=== PATIENT | female | born 1980 | race Caucasian/White ===

== ENCOUNTER → 2022-08-17 | Outpatient (CLI) | payer OTHER, SELFPAY ==
[2022-08-17 10:18] LABS: Mucous, Urine 0 SEEN /hpf (<or=2+)
[2022-08-17 10:25] LABS: Color, Urine Yellow (Yellow); Glucose, Dipstick Normal (Normal); Ketone-Dipstick Negative (Negative); Leukocyte Esterase-Dipstick 500 /ul (Negative); Nitrite-Dipstick Negative (Negative); Occult Blood-Urine 150 /ul (Negative); Protein-Dipstick Negative (Negative); Urine Bilirubin Dipstick Negative (Negative); Urine Clarity Sl. Cloudy (Clear); Urine Urobilinogen Normal (Normal); Urine pH 6.5 (5.0 - 8.0)
[2022-08-17 10:41] LABS: Bacteria 1+ /hpf (None Seen); Red Blood Cells-Urine 0-5 SEEN /hpf (0-5); Squamous Epithelial Cells - UA 0-5 SEEN /hpf (5-10); White Blood Cells 25-50 SEEN /hpf (0-5)
== END | disposition home or self-care (01) ==
LOC: LABSPEC 10:06
PROVIDERS: Referring Provider Physician Assistant; Visit Provider Physician Assistant
DX: R30.0 Dysuria (principal)
CPT/HCPCS: 81001; 87077; 87086; 87088; 87186

== ENCOUNTER → 2022-09-01 | Outpatient (CLI) | payer OTHER, SELFPAY | END | disposition home or self-care (01) | LOC: LABSPEC 16:49 | PROVIDERS: Referring Provider Urology; Visit Provider Urology | DX: N30.00 Acute cystitis without hematuria (principal) | CPT/HCPCS: 87086; 87088 ==

== ENCOUNTER → 2022-10-08 | Outpatient (CLI) | payer OTHER, SELFPAY | END | disposition home or self-care (01) | PROVIDERS: Referring Provider Urology; Visit Provider Urology | DX: R30.0 Dysuria (principal) | CPT/HCPCS: 87086 ==

== ENCOUNTER → 2022-10-29 | Outpatient (CLI) | payer OTHER, SELFPAY ==
--- NOTE | 2022-10-29 12:45 | US_ITS ---
PROCEDURE: RENAL ULTRASOUND - COMPLETE REASON FOR EXAM: Female, 41 years old. Acute cystitis TECHNIQUE: Ultrasound evaluation of the bilateral kidneys was performed with real-time ultrasonography and static grayscale imaging. COMPARISON: None. FINDINGS: RIGHT KIDNEY: Normal location of the right kidney which is normal in size. The right kidney measures 11.1 x 5.6 x 4 cm cm. There is a normal cortex of the right kidney. The renal cortex measures 1.4 cm. There is no right renal mass or cyst. There are no right renal calculi. There is no right hydronephrosis. DISTAL RIGHT URETER: There is non-visualization of the distal right ureter. There is no demonstrated right ureterovesical junction calculus. There is a visualized right ureteral jet. LEFT KIDNEY: Normal location of the left kidney which is normal in size. The left kidney measures 10 x 5.2 x 4.7 cm cm. There is a normal cortex of the left kidney. The renal cortex measures 1.6 cm. There is no left renal mass or cyst. There are no left renal calculi. There is no left hydronephrosis. DISTAL LEFT URETER: There is non-visualization of the distal left ureter. There is no demonstrated left ureterovesical junction calculus. There is a visualized left ureteral jet. BLADDER: The distended urinary bladder has a volume of 435 ml. There is a normal wall thickness of the distended urinary bladder. The empty urinary bladder has a volume of 25 ml. There is no demonstrated mass within the urinary bladder. There is no demonstrated bladder calculi. Incidentally noted is fluid within the endometrial cavity suboptimally evaluated on this exam. US/Kidney and Bladder IMPRESSION: 1. No evidence of hydronephrosis. 2. Fluid in the endometrial cavity. Correlation with pelvic ultrasound is recommended. Electronically Signed: David Rodriguez MD at 16:08 EDT ,
== END | disposition home or self-care (01) ==
LOC: US 12:43
PROVIDERS: PCP Nurse Practitioner Family; Referring Provider Urology; Visit Provider Urology
DX: N30.01 Acute cystitis with hematuria (principal); R30.0 Dysuria
CPT/HCPCS: 76770

== ENCOUNTER 2023-05-14 06:00 | Day surgery (SDC) | payer OTHER, SELFPAY ==
--- NOTE | 2023-04-28 10:07 | HP.PCM_ITS ---
History and Physical Date of Admission: 05/14/23 HPI: The patient is a 42 year old female presenting for pre-operative visit. She is scheduled for hysteroscopy with endometrial ablation, for menorrhage and fe def. anemia on 05/14/23. Procedure discussed along with risks, benefits and complications. Other alternatives discussed for management. Consent form signed? Yes. ? ? PAST MEDICAL HISTORY PAST MEDICAL HISTORY Diagnosis Date ? Anemia ? ? Anxiety ? ? Hypertension ? ? Irritable bowel syndrome 12/2003 ? ? PAST SURGICAL HISTORY PAST SURGICAL HISTORY Procedure Laterality Date ? COLONOSCOPY FLX DX W/COLLJ SPEC WHEN PFRMD ? ? ? Colonoscopy, removed 2 polyps ? ESSURE ? ? ? LAPS ABD PRTM&OMENTUM DX W/WO SPEC BR/WA SPX ? ? ? Laparoscopy ? PAST SURGICAL HISTORY OF ? 02/18/2006 ? [place] teeth extracted ? ? ? CURRENT MEDICATIONS Current Outpatient Medications Medication Sig Dispense Refill ? clobetasol (TEMOVATE) 0.05 % cream APPLY to flared areas OF the body in a thin layer TWICE DAILY for up to 2 weeks, then hold ? ? ? triamcinolone acetonide (KENALOG) 0.1 % cream APPLY in a thin layer to flared areas OF the face TWICE DAILY for up to 2 weeks, then hold ? ? ? ergocalciferol 50,000 unit capsule (VITAMIN D2, DRISDOL) Take 1 capsule by mouth one time a week. ? ? ? ferrous sulfate 325 mg (65 mg iron) tablet ? calcium-vitamin D3-vitamin K (VIACTIV) 650 mg-12.5 mcg-40 mcg chew ? L. acidophilus-L. salivarius-B. bifidum-S. thermophilus (ACIDOPHILUS) 175 mg capsule ? norgestrel-ethinyl estradiol (ELINEST) 0.3-30 mg-mcg per tablet Take 1 tablet by mouth once daily. 28 tablet 11 ? d-mannose 500 mg cap ? levothyroxine (SYNTHROID) 25 mcg tablet 50 mcg. ? ? ? Ascorbic Acid 1,000 mg tablet ? hydrOXYzine HCl (ATARAX) 25 mg tablet Take 25 mg by mouth three times daily as needed. ? ? ? No current facility-administered medications for this visit. ? ? ALLERGIES: Demerol [Meperidine (Pf)], Sulfamethoxazole-Trimethoprim, Tetanus Vaccines And Toxoid, Tetracycline, and Venofer [Iron Sucrose] ? PERSONAL HISTORY: SOCIAL HISTORY Social History ? Tobacco Use ? Smoking status: Former ? ? Packs/day: 1.00 ? ? Years: 7.00 ? ? Additional pack years: 0.00 ? ? Total pack years: 7.00 ? ? Types: Cigarettes ? ? Quit date: 08/22/2005 ? ? Years since quittin.6 ? Smokeless tobacco: Never Vaping Use ? Vaping Use: Never used Substance Use Topics ? Alcohol use: Yes ? ? Comment: Occasionally ? Drug use: No ? FAMILY HISTORY: FAMILY HISTORY FAMILY HISTORY Problem Relation Age of Onset ? Cancer Mother ? ? Uterine & ovarian ? Hypertension Father ? ? Heart Father ? ? [place], CHF ? Heart Sister ? ? 50's ? Parkinson?s Disease Brother ? ? Migraines Brother ? ? other (Mentally Retarded) Maternal Uncle ? ? ? REVIEW OF SYMPTOMS: GENERAL: denies fevers or chills ENDOCRINOLOGY: has not been on steroids Cardiology : denies palpitations or chest pain Respiratory: denies SOB or cough Hematology: denies history of prolonged bleeding or easy bruising or VTE Allergy: Denies history of personal or family history of allergy to anesthesia ? PHYSICAL EXAMINATION: ? VITALS: Blood pressure 118/74, pulse 92, height 5' 4.5 (1.638 m), weight 151 lb (68.5 kg), last menstrual period 04/07/2023, SpO2 100%. ? GENERAL: The patient is well nourished, well hydrated in no acute distress. , The patient is oriented to time, place, and person. NECK: Supple. No lynphadenopathy, normal thyroid, no thyromegaly. LUNGS: Clear to auscultation bilaterally. no wheezes, rhonchi or rales HEART: Regular rate and rhythm, Normal heart sounds, and No murmurs or gallops ? IMPRESSION: AUB, fe def. anemia ? PLAN: The risks/benefits/alternatives and personal involved for the planned hysteroscopy with endometrial ablation were reviewed with the patient. Her questions were answered to her satisfaction and she desires to proceed. Consent was signed. I reviewed with her postop instructions and expectations. ? ? I have reviewed and updated past medical and surgical history, medications and allergies Assessment & Plan Assessment/Plan (1) Fe deficiency anemia: (2) Abnormal uterine bleeding (AUB):
[2023-05-14 06:34] LABS: Internal QC Validated? YES +Cl - CLEAR BKGD; Pregnancy, Urine Negative Negative
[2023-05-14 06:37] VITALS: BP 127/87; PULSE 90; RESP 16; TEMP 37.3; O2SAT 100; BMI 24.9
[2023-05-14] MEDS: Lactated Ringers 1,000 ML 15 ML IV (06:45)
[2023-05-14] MEDS: Acetaminophen 500 MG Tablet 1000 MG PO (06:45)
[2023-05-14] MEDS: Ketorolac 30 MG/ML Syringe IV (06:46)
[2023-05-14 07:12] LABS: Hematocrit 38.9 % (37-47); Hemoglobin 12.9 g/dL (12.0-15.0); Mean Corp Hgb Conc 33.2 g/dL (32-36); Mean Corpuscular Hgb 30.1 pg (27.0-32.0); Mean Corpuscular Volume 90.9 fL (81-99); Mean Platelet Vol. 10.3 fl (6.2-12.0); Platelet Count 175 K/mm3 (150-450); RBC Distribution Width CV 12.9 % (11.6-14.6); RBC Distribution Width SD 42.5 fl (35.1-43.9); Red Blood Count 4.28 M/mm3 (4.2-5.4); White Blood Count 3.7 K/mm3 (4.4-11.0)
--- NOTE | 2023-05-14 07:45 | PCM.DC ---
Discharge Instructions Diet Discharge Diet: No restrictions Activity May resume sexual activity in: 2 weeks Lifting Restrictions: none Additional Activity Instructions:: Take tylenol or ibuprofen as needed for pain. You may use a heating pad on your abdomen as needed. Dressing / Incision Call your doctor if your incision/area has: Sudden Increased Bleeding and Foul Smelling Discharge Call your doctor if you observe: Fever of 101 or Higher and Using more than 1 pad per hour (for 2 hrs in a row) Follow Up Care Please Follow Up With: Kelsy Jeffrey MD When: YOu do not need a postop appointment. Call [phone] or send a Meeting To You message. to make an appointment or with any concerns. Test Results: Test results from this visit will be discussed in further detail at your follow-up appointment, if applicable. Discharge Plan Admission Primary Reason for Your Visit: Endometrial ablation Attending Provider: Kelsy Jeffrey Primary Care Provider: Karli Anne NP Discharge Orders/Prescriptions Prescriptions: No Action levothyroxine 50 mcg tablet 50 mcg PO DAILY d-mannose 500 mg capsule 1,300 mg PO DAILY Elinest 0.3-30 mg-mcg tablet 1 tab PO DAILY ergocalciferol (vitamin D2) 1,250 mcg (50,000 unit) capsule 1,250 mcg PO QWEEK hnogxakfmoys-ycm-ttahnnp-FA 200-0.4 mg tablet,chewable 1 tab PO BID ferrous gluconate 320 mg (36 mg iron) tablet 320 mg PO QHS C Complex 1,000 mg tablet extended release 1,000 mg PO DAILY Probacap 10 billion cell capsule 100 mmu cells PO DAILY Referrals / Follow Up: Karli Anne NP, [facility] [Primary Care Provider] - Disposition Disposition (needs filled in before D/C Order can be placed): Home, Self Care
--- NOTE | 2023-05-14 07:49 | OP.PCM_ITS ---
Problems Associated Problem List Diagnoses (1) Fe deficiency anemia: (2) Abnormal uterine bleeding (AUB): Report of Operation Date of Procedure: 05/14/23 Pre-Operative Diagnosis: AUB, fe def anemia from chronic blood loss Post-Operative Diagnosis: same Surgery/Procedure Performed:: Hysteroscopy with HTA endometrial ablation Surgeon: Kelsy Jeffrey arranging funeral director: Kerry< KAREN ms3 Type of Anesthesia: MAC/Supplemental/Local Anesthesiologist: Everett Love Special Medications: none Drains: none Description of Procedure: The patient was taken to the OR where she was prepped and draped in dorsal lithotomy position. The weighted speculum was placed in the vagina and the anterior lip of the cervix was grasped with a single-tooth tenaculum. A paracervical block was administered with [1% lidocaine with 1-100,000 epinephrine solution]. The cervix was dilated serially with Hegar dilators. The [5mm] hysteroscope was placed into the uterine cavity and the above findings were noted. Bilateral tubal ostia [were] identified. The hysteroscope was removed. A gentle sharp curettage was done of the uterine cavity. The instruments were removed from the vagina. The specimen was handed off and sent to pathology. All sponge and needle counts were correct. Vaginal sweep was performed by me. The patient was awakened and taken to the recovery room in stable condition. Hysteroscopic ins: []cc normal saline Hysteroscopic outs:[]cc Findings: Endometrial cavity: [normal, no fibroids or polyps noted] Cervix: [normal] Vagina: [normal] Complications none Admit VTE Documentation VTE Present on Admission: No VTE Mechan Device Prophylaxis: SCD's VTE Pharm Prophylaxis ordered?: No Reason prophylaxis not ordered:: Procedure Not Indicated
--- NOTE | 2023-05-14 07:49 | PCM.OPRPT ---
Problems Associated Problem List Diagnoses (1) Fe deficiency anemia: (2) Abnormal uterine bleeding (AUB): Report of Operation Date of Procedure: 05/14/23 Pre-Operative Diagnosis: AUB, fe def anemia from chronic blood loss Post-Operative Diagnosis: same Surgery/Procedure Performed:: Hysteroscopy with HTA endometrial ablation Description of Surgical Findings:: normal cervix adn vagina, grossly normal uterine cavity Surgeon: Kelsy Jeffrey tool tender: Kerry< KAREN ms3 Type of Anesthesia: MAC/Supplemental/Local Anesthesiologist: Everett Love Special Medications: none Specimen's removed: none Drains: none Estimated Blood Loss (mL): 10 Fluids Replaced: 900 Description of Procedure: The patient was taken to the OR where she was prepped and draped in dorsal lithotomy position. The weighted speculum was placed in the vagina and the anterior lip of the cervix was grasped with a single-tooth tenaculum. A paracervical block was administered with 1% lidocaine with 1-100,000 epinephrine solution. The cervix was dilated serially with Hegar dilators. The HTA hysteroscope was placed into the uterine cavity and the above findings were noted. Bilateral tubal ostia were identified. The uterus sounded to 8 cm. The HTA device was readied. There were no focal abnormalities of the uterus. Once the device was ready of the diagnostic hysteroscopy was performed. The cervical seal was confirmed. The device was placed at the level of the patient bed. The cervix was visible during the entire procedure and the ablation procedure was initiated. The ablation procedure and cooldown were performed without interruption. There were wet sponges in the posterior vaginal fornix during the entire procedure. The uterine cavity was intact at the end of the procedure. The instruments were removed from the cervix and no bleeding from the tenaculum site was noted.. All sponge and needle counts were correct. Vaginal sweep was performed by me. The patient was awakened and taken to the recovery room in stable condition. Hysteroscopic fluid deficit was 100 cc of normal saline Findings: Endometrial cavity: Normal, no fibroids or polyps noted Cervix: Normal Vagina: Normal Grafts/Implants Used: none Procedure Start Time: 07:54 Procedure Stop Time: 08:24 Complications none Admit VTE Documentation VTE Present on Admission: No VTE Mechan Device Prophylaxis: SCD's VTE Pharm Prophylaxis ordered?: No Reason prophylaxis not ordered:: Procedure Not Indicated
[2023-05-14] MEDS: Lidocaine 1% /Epi 1:100 (20ml) 20 ML Vial (07:50)
[2023-05-14 08:35] VITALS: BP 127/87; BP 129/87; PULSE 94; RESP 16; TEMP 36.8; O2SAT 99
[2023-05-14 08:40] VITALS: BP 127/87; BP 133/84; PULSE 102; RESP 16; O2SAT 100
[2023-05-14 08:46] VITALS: BP 127/87; BP 132/89; PULSE 101; RESP 16; TEMP 36.6; O2SAT 100
[2023-05-14 09:27] VITALS: BP 127/87
== END 2023-05-14 09:42 | disposition home or self-care (01) ==
LOC: SDC 06:03 → AC 06:05
PROVIDERS: PCP Nurse Practitioner Family; Referring Provider Obstetrics & Gynecology; Visit Provider Obstetrics & Gynecology
PROC: 0U5B8ZZ Destruction of Endometrium, Via Natural or Artificial Opening Endoscopic (ICD-10-PCS; CPT 58563; principal; 2023-05-14 07:15)
DX: N93.9 Abnormal uterine and vaginal bleeding, unspecified (principal); D50.0 Iron deficiency anemia secondary to blood loss (chronic); I10 Essential (primary) hypertension; Z87.891 Personal history of nicotine dependence; E07.9 Disorder of thyroid, unspecified; Z79.890 Hormone replacement therapy
CPT/HCPCS: 58563; 00952; 81025; 85027; J7120; J2405

== ENCOUNTER → 2025-01-10 | Outpatient (CLI) | payer OTHER, SELFPAY ==
[2025-01-10 11:18] LABS: Color, Urine Yellow (Yellow); Glucose, Dipstick Normal (Normal); Ketone-Dipstick Negative (Negative); Leukocyte Esterase-Dipstick 25 /ul (Negative); Nitrite-Dipstick Negative (Negative); Occult Blood-Urine 250 /ul (Negative); Protein-Dipstick Negative (Negative); Specific Gravity, Urine 1.010 (1.002-1.030); Urine Bilirubin Dipstick Negative (Negative)
[2025-01-10 11:21] LABS: Hematocrit 38.6 % (37-47); Hemoglobin 13.1 g/dL (12.0-15.0); Immature Granulocytes Count 0.010 X10^3/uL (0.0-0.0); Mean Corp Hgb Conc 33.9 g/dL (32-36); Mean Corpuscular Volume 95.3 fL (81-99); Mean Platelet Vol. 11.0 fl (6.2-12.0); NRBC Flagged by Analyzer 0 % (0-5); Platelet Count 171 K/mm3 (150-450); RBC Distribution Width CV 12.2 % (11.6-14.6); RBC Distribution Width SD 42.5 fl (35.1-43.9); Red Blood Count 4.05 M/mm3 (4.2-5.4); White Blood Count 4.5 K/mm3 (4.4-11.0)
[2025-01-10 11:31] LABS: EXAGEN MAILED SPECIMEN
[2025-01-10 12:06] LABS: Creatinine, Urine (random) 25.70 mg/dL (28.00-217.00)
[2025-01-10 12:22] LABS: AST(SGOT) 16 U/L (<=31); Alanine Aminotransfer ALT/SGPT 8 U/L (<=34); Albumin, Serum 4.4 g/dL (3.5-5.0); Alkaline Phosphatase 65 U/L (35-104); Anion Gap 10 (5-15); BUN 9 mg/dL (4-19); BUN/Creat Ratio 15.3 RATIO (10-20); Calcium,Total 9.0 mg/dL (7.6-11.0); Carbon Dioxide 24.2 mmol/L (21.0-32.0); Chloride 103 mmol/L (98-108); Globulin 2.7 g/dL (2.2-4.2); Glucose 105 mg/dL (70-99); Hepatitis B Surface Antigen Nonreactive (Nonreactive); Hepatitis C Antibody Nonreactive (Nonreactive); Potassium 4.1 mmol/L (3.3-5.1)
[2025-01-10 12:27] LABS: Protein, Urine (Random) < 6.0 mg/dL (0.0-12.0); Protein:Creat Ratio UNABLE TO CALCULATE mg/g CRE (0-200)
[2025-01-12 07:08] LABS: Dilute Russell Viper Venom 34.5 sec (0.0-47.0); Interpretation Comment: (.); PTT-LA 37.5 sec (0.0-43.5)
== END | disposition home or self-care (01) ==
LOC: LAB 10:27
PROVIDERS: PCP Nurse Practitioner Family; Referring Provider Internal Medicine Rheumatology; Visit Provider Internal Medicine Rheumatology
DX: M06.4 Inflammatory polyarthropathy (principal); R76.89 Other specified abnormal immunological findings in serum
CPT/HCPCS: 36415; 80053; 81002; 82570; 84156; 85025; 86706; 86803; 87340